=== PATIENT | female | born 1980 | race African-American/Black ===

== ENCOUNTER 2017-04-15 06:05 | Emergency (ER) | payer OTHER ==
[2017-04-15 06:12] VITALS: BP 134/74; BMI 38.4
--- NOTE | 2017-04-15 06:44 | DR.GENAD ---
HPI - PCP Primary Care Physician: CHINMAY PINTO(OB) - Complaint/Symptoms Chief Complaint Doctors Comments: Patient states that she stands for twelve hours while working and her feet hurt. She also states that she is a diabetic and she has leg pain. Chief Complaint:: "LEGS ACHING AND THEY SWOLLEN. THEY HURT ME SO BAD, I HAD TO LEAVE WORK. " - Source History Provided: Patient - Mode of Arrival Mode of Arrival: Ambulatory - Timing Onset of Chief Complaint: 04/12/17 <YUDITH CASTAÑEDA - Last Filed: 04/15/17 08:01> PMH - PMH Past Medical History: Yes Past Medical History: Diabetes, Hypertension Past Surgical History: No - Family History History of Family Medical Conditions: Yes Family Medical History: Diabetes Mellitus, Cancer, Heart Failure, Hypertension - Social History Does patient currently use any type of tobacco product: No Have you used tobacco products in the last 12 months: No Type of Tobacco Use: None Does any household member use tobacco: No Alcohol Use: None Do you use any recreational Drugs:: No Lives With: Family Lives Where: Home - infectious screening Have you traveled outside the country in the last 6 months?: No Isolation: Standard <YUDITH CASTAÑEDA - Last Filed: 04/15/17 08:01> ROS - Review of Systems Eyes: No Symptoms Reported ENTM: No Symptoms Reported Respiratoy: No Symptoms Reported Cardiovascular: No Symptoms Reported Gastrointestinal/Abdominal: No Symptoms Reported Genitourinary: No Symptoms Reported Neurological: No Symptoms Reported Musculoskeletal: No Symptoms Reported Integumentary: No Symptoms Reported Hematologic/Lymphatic: No Symptoms Reported Endocrine: No Symptoms Reported Psychiatric: No Symptoms Reported All Other Systems: Reviewed and Negative <YUDITH CASTAÑEDA - Last Filed: 04/15/17 08:01> PE - General Limitations: No Limitations General Appearance: Alert, In No Apparent Distress - Head Head Exam: Normal Inspection, Atraumatic - Eyes Eye exam: Normal Appearance, PERRL, EOMI - ENT ENT Exam: Normal Exam External Ear Exam: Normal External Inspection TM/Canal Exam: Bilateral Normal Nose Exam: Normal Nose Exam Mouth Exam: Normal Inspection Throat Exam: Normal Inspection - Neck Neck Exam: Normal Inspection, Full ROM - Chest Chest Inspection: Normal Inspection - Respiratory Respiratory Exam: Normal Lung Sounds Bilat Respiratory Exam: Bilateral Clear to Auscultation - Cardiovascular Cardiovascular Exam: Regular Rate - Abdominal Exam Abdominal Exam: Normal Inspection Abdominal Tenderness: negative: RUQ, RLQ, LUQ, LLQ, Epigastrium, Suprapubic, Diffuse, Mild, Moderate, Severe, Other - Extremities Extremities Exam: Normal Inspection, Full ROM - Back Back Exam: Normal Inspection - Neurologic Neurological Exam: Alert, Oriented X3, CN II-XII Intact - Skin Skin Exam: Warm, Dry, Intact <YUDITH CASTAÑEDA - Last Filed: 04/15/17 08:01> ROR - Labs Reviewed Result Diagrams: 04/15/17 07:23 <YUDITH CASTAÑEDA - Last Filed: 04/15/17 08:01> - Labs Reviewed Result Diagrams: 04/15/17 07:23 <FRANCA GRAYSON - Last Filed: 04/15/17 08:30> - Labs Reviewed Laboratory: Sodium 136 mmol/L (136-145) 04/15/17 07:23 Corrected Sodium 137 mmol/L (136-145) 04/15/17 07:23 Potassium 4.1 mmol/L (3.5-5.1) 04/15/17 07:23 Chloride 104 mmol/L (98-107) 04/15/17 07:23 Carbon Dioxide 24.7 mmol/L (21-32) 04/15/17 07:23 BUN 7 mg/dL (7-18) 04/15/17 07:23 Creatinine 0.53 mg/dL (0.55-1.02) L 04/15/17 07:23 Est GFR (MDRD) Af Amer > 60 (>60) 04/15/17 07:23 Est GFR (MDRD) Non-Af > 60 (>60) 04/15/17 07:23 Glucose 124 mg/dL (65-99) H 04/15/17 07:23 Hemoglobin A1c 7.1 % (4.5-6.2) H 04/15/17 07:23 Calcium 8.7 mg/dL (8.5-10.1) 04/15/17 07:23 (FRANCA GRAYSON) <YUDITH CASTAÑEDA - Last Filed: 04/15/17 08:01> <FRANCA GRAYSON - Last Filed: 04/15/17 08:30> - Diagnosis Discharge Problem: Plantar fasciitis - Discharge Plan Condition: Stable - Follow ups/Referrals Follow ups/Referrals: NFD,None [Primary Care Provider] - 3 days - Instructions Instructions: Muscle Cramps and Spasms Additional Instructions: RETURN TO ED IF WORSE. MONITOR GLUCOSE , CHART AND TAKE TO YOUR DOCTOR. SEE OB [facility] THIS Monday04/17/2017. USE TYLENOL 650MG Q6HR FOR NEEDED.
[2017-04-15 08:01] LABS: BLOOD UREA NITROGEN 7 mg/dL (7-18); CALCIUM 8.7 mg/dL (8.5-10.1); CARBON DIOXIDE 24.7 mmol/L (21-32); CHLORIDE 104 mmol/L (98-107); COR NA(FOR HYPERGLY) 137 mmol/L (136-145); CREATININE 0.53 mg/dL (0.55-1.02); GLUCOSE 124 mg/dL (65-99); SODIUM 136 mmol/L (136-145); eGFR BLACK RACES > 60 (>60); eGFR NON BLACK RACES > 60 (>60)
[2017-04-15 08:11] LABS: HEMOGLOBIN A1C 7.1 % (4.5-6.2)
== END 2017-04-15 08:48 | disposition home or self-care (01) ==
LOC: ER 06:05
DX: M72.2 Plantar fascial fibromatosis (principal)
CPT/HCPCS: 36415; 80048; 83036; 99282; 99283

== ENCOUNTER 2017-07-05 21:19 | Emergency (ER) | payer OTHER ==
[2017-07-05 21:24] VITALS: BP 151/82; BMI 38.7
[2017-07-05 22:05] LABS: BILIRUBIN,URINE NEGATIVE (NEGATIVE); BLOOD/HEMOGLOBIN,URINE NEGATIVE (NEGATIVE); GLUCOSE, URINE NEGATIVE (NEGATIVE); KETONES,URINE NEGATIVE (NEGATIVE); LEUKOCYTE ESTERASE ,URINE NEGATIVE (NEGATIVE); NITRITES,URINE NEGATIVE (NEGATIVE); PROTEIN,URINE 2+ (NEGATIVE); UROBILINOGEN,URINE 2+ (NORMAL)
[2017-07-05 22:08] LABS: AMNISURE ROM TEST NO MEMBRANES RUPTURE (NO RUPTURE)
[2017-07-05 22:29] LABS: APPEARANCE,URINE CLEAR (CLEAR); BACTERIA,URINE TRACE /HPF (NEGATIVE); CALCIUM OXALATE CRYSTALS,UR MANY /HPF (NEGATIVE); COLOR,URINE YELLOW (YELLOW); RBC,URINE 0-3 /HPF (NEGATIVE); SQUAMOUS EPITHELIAL CELL,UR FEW /HPF (NEGATIVE)
--- NOTE | 2017-07-05 22:44 | DR.GENAD ---
HPI - Complaint/Symptoms Chief Complaint Doctors Comments: Patient denies dysuria, admits to whitish vaginal discharge. Baby is moving. Denies fever. Admits to nausea w/o vomiting. Patient was seen by her OB on last week. 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 She denies any vaginal bleeding; but whitish vaginal discharge Chief Complaint:: PT STATES SHE IS HAVING WHITE DISCHARGE AND LLQ ABD PAIN. PT IS 28 WEEKS . G1. - Source History Provided: Patient - Mode of Arrival Mode of Arrival: Ambulatory - Timing Onset of Chief Complaint: 07/05/17 PMH - PMH Past Medical History: Yes Past Medical History: Diabetes Past Surgical History: No - Family History History of Family Medical Conditions: Yes Family Medical History: Diabetes Mellitus, Cancer, Hypertension - Social History Do you use any recreational Drugs:: No - infectious screening Have you traveled outside the country in the last 6 months?: No ROS - Review of Systems Constitutional: No Symptoms Reported Eyes: No Symptoms Reported ENTM: No Symptoms Reported Respiratoy: No Symptoms Reported Cardiovascular: No Symptoms Reported Gastrointestinal/Abdominal: No Symptoms Reported Genitourinary: No Symptoms Reported Neurological: No Symptoms Reported Musculoskeletal: No Symptoms Reported Integumentary: No Symptoms Reported Hematologic/Lymphatic: No Symptoms Reported Endocrine: No Symptoms Reported Psychiatric: No Symptoms Reported All Other Systems: Reviewed and Negative PE - Vital Signs Vitals: Temperature 98.4 F Pulse Rate 86 Respiratory Rate 18 Blood Pressure [Right Arm] 136/78 Blood Pressure [Left Arm] 113/62 Blood Pressure 151/82 O2 Sat by Pulse Oximetry 98 - General Limitations: No Limitations General Appearance: Alert, In No Apparent Distress - Head Head Exam: Normal Inspection, Atraumatic - Eyes Eye exam: Normal Appearance, PERRL, EOMI - ENT ENT Exam: Normal Exam, Normal Oropharynx External Ear Exam: Normal External Inspection TM/Canal Exam: Bilateral Normal Nose Exam: Normal Nose Exam, Sinus Tenderness Mouth Exam: Normal Inspection Throat Exam: Normal Inspection - Neck Neck Exam: Normal Inspection - Chest Chest Inspection: Normal Inspection - Respiratory Respiratory Exam: Normal Lung Sounds Bilat Respiratory Exam: Bilateral Clear to Auscultation - Cardiovascular Cardiovascular Exam: Regular Rate, Normal Rhythm - Abdominal Exam Abdominal Exam: Normal Inspection, Normal Bowel Sounds Abdominal Tenderness: Other (discomfort lower abdomen) - Extremities Extremities Exam: Normal Inspection. negative: Edema - Back Back Exam: Normal Inspection - Neurologic Neurological Exam: Alert, Oriented X3, CN II-XII Intact - Psychiatric Psychiatric Exam: Normal Affect - Skin Skin Exam: Warm, Dry, Intact ROR - Labs Reviewed Laboratory Results Reviewed?: Yes (UA: negative) Laboratory: Specimen Type Clean catch urine 07/05/17 21:50 Urine Color Yellow (YELLOW) 07/05/17 21:50 Urine Appearance Clear (CLEAR) 07/05/17 21:50 Urine pH 6.0 (5.0 - 8.0) 07/05/17 21:50 Ur Specific Ribera 1.025 (1.000-1.030) 07/05/17 21:50 Urine Protein 2+ (NEGATIVE) 07/05/17 21:50 Urine Glucose (UA) Negative (NEGATIVE) 07/05/17 21:50 Urine Ketones Negative (NEGATIVE) 07/05/17 21:50 Urine Occult Blood Negative (NEGATIVE) 07/05/17 21:50 Urine Nitrite Negative (NEGATIVE) 07/05/17 21:50 Urine Bilirubin Negative (NEGATIVE) 07/05/17 21:50 Urine Urobilinogen 2+ (NORMAL) 07/05/17 21:50 Ur Leukocyte Esterase Negative (NEGATIVE) 07/05/17 21:50 Urine RBC 0-3 /HPF (NEGATIVE) 07/05/17 21:50 Urine WBC 0-3 /HPF (NEGATIVE) 07/05/17 21:50 Ur Squamous Epith Cells Few /HPF (NEGATIVE) 07/05/17 21:50 Calcium Oxalate Crystal Many /HPF (NEGATIVE) 07/05/17 21:50 Urine Bacteria Trace /HPF (NEGATIVE) 07/05/17 21:50 Ur Culture Indicated? No/not indicated 07/05/17 21:50 Placental [id number] No membranes rupture (NO RUPTURE) 07/05/17 21:58 - Diagnosis Discharge Problem: Vulvovaginal candidiasis, and infectious disease in third trimester - Discharge Plan Condition: Stable - Follow ups/Referrals Follow ups/Referrals: NICOL MOY [Primary Care Provider] - 3 days - Instructions
== END 2017-07-05 22:58 | disposition home or self-care (01) ==
LOC: ER 21:28
DX: R10.32 Left lower quadrant pain (principal); B37.3 Candidiasis of vulva and vagina; Z3A.28 28 weeks gestation of pregnancy
CPT/HCPCS: 81001; 84112; 99283; 99284